=== PATIENT | male | born 1970 | race Caucasian/White ===

== ENCOUNTER 2017-08-13 03:51 | Emergency (ER) | payer OTHER ==
--- NOTE | 2017-08-13 08:35 | RAD ---
LEFT ANKLE 3 VIEWS: Date: 08/13/17 HISTORY: Ankle injury. FINDINGS: There are no signs of fracture, dislocation, or joint effusion. There is a lucent lesion with well-de fined margins involving the calcaneus. This is most consistent with an intraosseous lipoma of the aarti caneus. IMPRESSION: 1. No evidence of fracture. 2. Intraosseous lipoma of calcaneus. POS: [facility]
== END 2017-08-13 05:48 | disposition home or self-care (01) ==
LOC: ERS 03:51
DX: S93.402A Sprain of unspecified ligament of left ankle, initial encounter (principal); E03.9 Hypothyroidism, unspecified; E78.5 Hyperlipidemia, unspecified; Z87.891 Personal history of nicotine dependence; Z79.899 Other long term (current) drug therapy; W22.8XXA Striking against or struck by other objects, initial encounter

== ENCOUNTER 2018-06-22 15:01 | Outpatient (CLI) | payer OTHER ==
--- NOTE | 2018-06-22 18:24 | RAD ---
FOUR VIEWS LUMBAR SPINE: 06/22/18 HISTORY: Lumbar radiculopathy. COMPARISON: 01/15/12. FINDINGS: Again noted are five nonribbearing lumbar type vertebral bodies. There is mild narrowing of the L4-5 intervertebral disc space with slightly greater degree of narrowing involving the L5-S1 intervertebra l disc space which has progressed from the prior exam. Vertebral body heights are within normal limit s and there is no fracture or subluxation seen. Mild facet degenerative changes are seen at the lumbo sacral junction. IMPRESSION: 1. Mild degenerative changes of the lower lumbar spine. There is no evidence of subluxation. 2. Calcific density overlying medial aspect left iliac bone which cannot be further localized. T his may represent overlying calcification. This is difficult to further evaluate. POS: [facility]
--- NOTE | 2018-06-22 19:31 | MRI ---
NONCONTRAST MRI LUMBAR SPINE: 06/22/18 HISTORY: Lumbar radiculopathy. COMPARISON: 03/02/12. FINDINGS: A 1.6 cm increased T2 weighted signal intensity lesion seen in the anterior aspect inferior pole left kidney probably present on the prior study but smaller in size. This is difficult to adequately carolynn acterize on this examination but statistically likely represents a renal cyst. Retroperitoneal struct ures otherwise demonstrate a normal MRI appearance. The conus medullaris is normal in appearance and terminates at the L-2 level. Vertebral body heights are within normal limits. End plate degenerative changes are seen at the L5-S1 level, but normal signal intensity is otherwise demonstrated in the bone marrow. There is vacuum phe nomenon seen in the L5-S1 intervertebral disc. L1-2 level: There is no disc bulge or disc herniation. Central spinal canal and neural foramina are p atent. L2-3 level: There is no disc bulge or disc herniation. Central spinal canal and neural foramina are p atent. L3-4 level: There is no significant disc bulge or disc herniation. Central spinal canal and neural fo ramina are patent. L4-5 level: As noted on the prior exam, there is loss of intervertebral disc height. A disc osteophyt e complex is present with a superimposed central/left paracentral disc protrusion. This again results in severe narrowing of the central spinal canal as well as severe narrowing of the left lateral rece ss. This probably affects the exiting left L 5 nerve root at this level as well. Facet hypertrophic c hanges are present. Mild ligamentous thickening is present at this level. There is mild left and mild to moderate right sided neural foraminal narrowing. L5-S1 level: There is loss of intervertebral disc height similar to the prior study. Disc bulge and c entral annular tear are again present and overall similar to the prior exam. This results in slight e ffacement of the ventral aspect of the thecal sac. Mild bilateral neural foraminal narrowing is prese nt similar to the prior exam. There are facet degenerative changes. IMPRESSION: 1. Disc degenerative changes at the L4-5 and L5-S1 levels overall similar to the prior study but greatest at the L4-5 level where there is persistent severe narrowing of the central spinal canal as well as severe narrowing of the left lateral recess as described above. 2. Increased T2 weighted signal intensity lesion left kidney statistically likely representing a cyst. Nonemergent renal sonogram is suggested for further evaluation. POS: [facility]
== END 2018-06-22 15:02 | disposition home or self-care (01) ==
LOC: SCSMRI 15:01
PROVIDERS: ATTEND Physician Assistant Surgical
DX: M47.26 Other spondylosis with radiculopathy, lumbar region (principal); M47.27 Other spondylosis with radiculopathy, lumbosacral region; N28.9 Disorder of kidney and ureter, unspecified
CPT/HCPCS: 72120; 72148

== ENCOUNTER 2018-08-12 16:27 | Outpatient (CLI) | payer OTHER ==
[2018-08-12 17:43] LABS: Mean Corpuscular HGB CONC 33.2 g/dL (32.0-36.0); Mean Corpuscular Hemoglobin 29.2 pg (27.0-31.0); Mean Corpuscular Volume 87.9 fL (78.0-98.0); Mean Platelet Volume 8.1 fL (7.4-10.4); Platelet Count 170 thou/uL (130-400); RBC Distribution Width 12.9 % (11.5-14.5); Red Blood Cell (RBC) Count 5.49 mill/uL (4.70-6.10); White Blood Cell (WBC) Count 7.1 thou/uL (4.8-10.8)
[2018-08-12 17:50] LABS: Prothrombin Time 13.1 SEC (12.0-14.7)
[2018-08-12 17:51] LABS: PTT 31.6 SEC (22.9-36.1)
[2018-08-12 17:52] LABS: Anion Gap 10 mmol/L (10-20); BUN (Urea Nitrogen) 14 mg/dL (8.9-20.6); Calc. Creatinine Clearance 0 mL/min (70-130); Calcium 9.9 mg/dL (7.8-10.44); Carbon Dioxide 30 mmol/L (22-29); Chloride 102 mmol/L (98-107); Estimated GFR-MDRD 71; Glucose 88 mg/dL (70-105); Potassium 3.6 mmol/L (3.5-5.1); Sodium 138 mmol/L (136-145)
--- NOTE | 2018-08-13 16:46 | EKG ---
Test Reason : Blood Pressure : / mmHG Vent. Rate : 063 BPM Atrial Rate : 063 BPM P-R Int : 146 ms QRS Dur : 098 ms QT Int : 412 ms P-R-T Axes : 055 -32 046 degrees QTc Int : 421 ms Normal sinus rhythm Left axis deviation Abnormal ECG When compared with ECG of 01-JUN-2016 19:04, No significant change was found Confirmed by DR. Silvia DA SILVA ([id number]) on 08/13/2018 4:45:42 PM Referred By: MARCUS Confirmed By:DR. Silvia DA SILVA
== END 2018-08-12 16:28 | disposition home or self-care (01) ==
LOC: LABBT 16:27
PROVIDERS: ATTEND Surgery
DX: Z01.818 Encounter for other preprocedural examination (principal); M54.16 Radiculopathy, lumbar region
CPT/HCPCS: 80048; 85027; 85610; 85730; 93005; 93010

== ENCOUNTER 2018-08-19 09:21 | Day surgery (SDC) | payer OTHER ==
[2018-08-12 16:48] VITALS: BMI 25.0
[2018-08-19] MEDS ORDERED: Rocuronium Bromide 10 MG/ML (10ML VIAL) ONE (09:51)
[2018-08-19] MEDS ORDERED: ePHEDrine 50 MG/ML VIAL ONE (09:51)
[2018-08-19] MEDS ORDERED: Dexamethasone 20 MG/5 ML VIAL ONE (09:51)
[2018-08-19] MEDS ORDERED: Lidocaine 1% PF 5 ML VIAL ONE (09:51)
[2018-08-19] MEDS ORDERED: Ondansetron PF 4 MG/2 ML Vial ONE (09:51)
[2018-08-19] MEDS ORDERED: Glycopyrrolate 0.2 MG/ML 5 ML SYRINGE ONE (09:51)
[2018-08-19] MEDS ORDERED: PROPOFOL 200 MG/20 ML VIAL ONE (09:51)
[2018-08-19] MEDS ORDERED: Bacitracin Zinc Ointment 30 gm TUBE ONE (10:19)
[2018-08-19] MEDS ORDERED: Thrombin 5000 UNITS/5 ML VIAL ONE (10:19)
[2018-08-19] MEDS ORDERED: Sodium Chloride 0.9% 10 ML ONE (10:20)
[2018-08-19] MEDS ORDERED: Fentanyl 100 MCG/2 ML VIAL ONE ×4 (10:50→13:41)
[2018-08-19] MEDS ORDERED: Midazolam HCl 2 mg/2 ml Vial ONE (10:50)
[2018-08-19] MEDS ORDERED: Mag-Al 1200 mg/1200 mg/30 ML UDCUP PO PRN (12:50)
[2018-08-19] MEDS ORDERED: Acetaminophen 325 MG TAB PO PRN (12:50)
[2018-08-19] MEDS ORDERED: Bisacodyl 10 MG SUPP PR PRN (12:50)
[2018-08-19] MEDS ORDERED: Milk Of Magnesia 30 ML UDCUP PO PRN (12:50)
[2018-08-19] MEDS ORDERED: traMADol HCl 50 MG TAB PO PRN (12:50)
[2018-08-19] MEDS ORDERED: Acetaminophen/Codeine 30-300mg Tablet PO PRN (12:50)
[2018-08-19] MEDS ORDERED: Promethazine HCl 25 MG/ML VIAL IM PRN ×2 (12:50→13:04)
--- NOTE | 2018-08-19 12:58 | OP ---
DATE OF PROCEDURE: 08/19/2018 OPERATING ROOM: OR 11. WOUND CLASSIFICATION: Type 1 wound. WELDER/FITTER: Srinath Hanks PA-C. PREOPERATIVE DIAGNOSES: Low back and left lower extremity pain with left L4-L5 disk extrusion and bilateral stenosis. PROCEDURES PERFORMED: 1. L4-L5 laminectomy, partial facetectomy, foraminotomy with left L4-L5 diskectomy. 2. Use of operative microscope for microdissection. DESCRIPTION OF PROCEDURE: After informed consent was obtained from the patient, the patient was brought to the OR. Proper patient, pause, and identification was carried out. He was placed under excellent general endotracheal anesthesia and positioned prone on the OR table. All appropriate points were padded. We identified the L4-L5 dorsal spines. A linear adolfo was made over that region. The area was sterilely cleansed, prepared, and draped. Proper patient, pause, and identification were carried out. The wound was then opened with combination of sharp, monopolar, and blunt dissection. The L4-L5 dorsal spines and lamina were exposed. Localization film confirmed our area of interest. We then performed L4-L5 laminectomy, partial facetectomy, and foraminotomy with the use of operative microscope. We procedure on the traversing left L5 nerve root shoulder and with gentle retraction, identified extrude disk material. Disk material was removed with excellent decompression of the common dural tube, bilateral L4, and bilateral L5 nerve roots. Copious irrigation occurred throughout as did maximizing hemostasis. The wound was then closed in anatomic layers. The patient then emerged from anesthesia. Job ID: [id number]
[2018-08-19] MEDS ORDERED: CEFAZOLIN 2 GM in Premix Bag 1 BAG IVPB SCH (13:00)
[2018-08-19] MEDS ORDERED: Fleet Enema 133 ML BOT PR PRN (13:00)
[2018-08-19] MEDS ORDERED: Promethazine HCl 25 MG/ML VIAL SLOW IVP PRN (13:04)
[2018-08-19] MEDS ORDERED: PACU-Morphine 4MG/ML VIAL SLOW IVP PRN (13:04)
[2018-08-19] MEDS ORDERED: Ondansetron HCl/PF 4 MG/2 ML Vial IVP PRN (13:04)
[2018-08-19] MEDS: Cyclobenzaprine 10 MG TAB PO PRN ×2 (14:07→21:27)
[2018-08-19] MEDS: Sodium Chloride 0.9% 1,000 ML IV SCH ×2 (14:20→21:34)
[2018-08-19] MEDS: HYDROcodone/Acetaminophen 7.5/325 mg Tablet PO PRN ×2 (15:23→19:32)
[2018-08-19] MEDS: CEFAZOLIN 2 GM in Premix Bag 1 BAG IVPB SCH (18:08)
[2018-08-19] MEDS ORDERED: Gabapentin 300 MG CAP PO SCH (21:00)
[2018-08-20] MEDS: HYDROcodone/Acetaminophen 7.5/325 mg Tablet PO PRN ×2 (01:35→06:35)
[2018-08-20] MEDS: Cyclobenzaprine 10 MG TAB PO PRN ×2 (03:06→09:37)
[2018-08-20] MEDS: CEFAZOLIN 2 GM in Premix Bag 1 BAG IVPB SCH (03:06)
[2018-08-20] MEDS: Baclofen 10 MG TAB PO PRN ×2 (04:00→08:05)
[2018-08-20] MEDS ORDERED: Levothyroxine Sodium 125 MCG TAB PO SCH (06:00)
[2018-08-20 07:45] VITALS: BP 109/63; TEMP 98.1
--- NOTE | 2018-08-20 11:57 | PRG ---
DATE OF SERVICE: 08/20/2018 SUBJECTIVE: Mr. Dozier is postoperative day 1 from lumbar diskectomies, doing very well with resolution in his lower extremity symptoms. He has good strength and is mobilizing. He will be dismissed. Job ID: [id number]
== END 2018-08-20 10:00 | disposition home or self-care (01) ==
LOC: SDC 09:21 → SURG A 13:53 → SDC 08-20 10:00
PROVIDERS: ATTEND Surgery
PROC: 01NB0ZZ Release Lumbar Nerve, Open Approach (ICD-10-PCS; principal; 2018-08-20)
PROC: 0ST20ZZ Resection of Lumbar Vertebral Disc, Open Approach (ICD-10-PCS; principal; 2018-08-20)
DX: M48.061 Spinal stenosis, lumbar region without neurogenic claudication (principal); M51.16 Intervertebral disc disorders with radiculopathy, lumbar region; Z79.899 Other long term (current) drug therapy
CPT/HCPCS: 76000; J2250; J2550; J3010; J3370; J3490

== ENCOUNTER 2019-06-08 07:31 | Emergency (ER) | payer OTHER ==
[2019-06-08 08:43] LABS: HIV (1/2) Antibody/Antigen Non-Reactive (NonReactive); HIV 1/2 INDEX 0.13 S/CO (<1.00); Hep C IgG Ab Non-Reactive (NonReactive); Hep C Index 0.15 S/CO (0-0.79)
[2019-06-08 08:50] LABS: HBSAB Concentration 57.57 mIU/mL; Hep B Surf AB Reactive (NonReactive)
== END 2019-06-08 08:00 | disposition home or self-care (01) ==
LOC: ERS 07:31
DX: S51.851A Open bite of right forearm, initial encounter (principal); E03.9 Hypothyroidism, unspecified; E78.5 Hyperlipidemia, unspecified; E78.00 Pure hypercholesterolemia, unspecified; Z87.891 Personal history of nicotine dependence; Z79.899 Other long term (current) drug therapy; W50.3XXA Accidental bite by another person, initial encounter
CPT/HCPCS: 36415; 86706; 86803; 87389; 99283

== ENCOUNTER 2022-04-11 21:21 | Emergency (ER) | payer BC, OTHER | END 2022-04-11 22:35 | disposition home or self-care (01) | LOC: ERS 21:21 | DX: T48.1X1A Poisoning by skeletal muscle relaxants [neuromuscular blocking agents], accidental (unintentional), initial encounter (principal); E78.00 Pure hypercholesterolemia, unspecified; E03.9 Hypothyroidism, unspecified; Z87.891 Personal history of nicotine dependence | CPT/HCPCS: 99283 ==